=== PATIENT | male | born 1950 | race African-American/Black ===

== ENCOUNTER 2022-05-19 12:27 | Emergency (ER) | payer OTHER ==
[~2022-05-19] VITALS: Ht 170.2 cm; Wt 115.7 kg
[2022-05-19 12:27] VITALS: BP_SYST 185
--- NOTE | 2022-05-19 12:27 | NUR ---
BROUGHT BACK TO BED #6 AND TRIAGED. REPORT GIVEN TO COLLIN
--- NOTE | 2022-05-19 12:35 | NUR ---
Pt bib self to ER from home. CC ear blockage. Pt states history of waxy build up. Pt states difficulty hearing in both ears. Pt skin intact, aaox3 denies dizziness, denies NVD.
[2022-05-19] MEDS ORDERED: DOCUSATE SODIUM 100 MG CAPSULE PO ONE (13:00)
--- NOTE | 2022-05-19 13:00 | NUR ---
ER at bedside examining patient.
--- NOTE | 2022-05-19 13:15 | NUR ---
ear drops instilled to left ear pt laying on right side. Lavage of NS and hydrogen peroxide sprayed with 60 ml syringe into left ear. Pt tolerated well.
[2022-05-19 14:19] VITALS: BP_SYST 178
--- NOTE | 2022-05-19 14:19 | NUR ---
Patient given written and verbal discharge instructions and verbalizes understanding. ER MD discussed with patient the results and treatment provided. Patient in stable condition. ID arm band removed. Opportunity for questions provided and answered. Medication side effect fact sheet provided.
== END 2022-05-19 14:19 | disposition home or self-care (01) ==
LOC: SED 12:27
DX: H61.23 Impacted cerumen, bilateral (principal); H92.01 Otalgia, right ear; F17.210 Nicotine dependence, cigarettes, uncomplicated; R42 Dizziness and giddiness; R53.1 Weakness; Z91.041 Radiographic dye allergy status; Z79.899 Other long term (current) drug therapy
CPT/HCPCS: 99284

== ENCOUNTER 2022-11-02 14:32 | Emergency (ER) | payer OTHER ==
[~2022-11-02] VITALS: Ht 167.6 cm; Wt 114.3 kg
[2022-11-02 14:32] VITALS: BP_SYST 150
--- NOTE | 2022-11-02 14:37 | NUR ---
Patient triaged and placed in waiting room. VSS and patient appears in no acute distress at this time. Accompanied by SELF, awaiting available bed, and MD notified of need for MSE.
--- NOTE | 2022-11-02 15:51 | NUR ---
PT LEFT WITHOUT BEING SEEN
== END 2022-11-02 15:15 | disposition left against medical advice (07) ==
LOC: SED 14:32
DX: M54.2 Cervicalgia (principal); Z53.21 Procedure and treatment not carried out due to patient leaving prior to being seen by health care provider
CPT/HCPCS: 99281

== ENCOUNTER 2023-04-04 16:19 | Emergency (ER) | payer MEDICARE, OTHER ==
[~2023-04-04] VITALS: Ht 167.6 cm; Wt 120.2 kg
[2023-04-04 17:27] VITALS: BP_SYST 187; PULSE 106; RESP 20; TEMP 98.2; O2SAT 98
== END 2023-04-04 19:15 | disposition left against medical advice (07) ==
LOC: SED 16:19
DX: U07.1 COVID-19 (principal); R05.9 Cough, unspecified; Z53.21 Procedure and treatment not carried out due to patient leaving prior to being seen by health care provider
CPT/HCPCS: 36415; 99281

== ENCOUNTER 2023-04-07 17:36 | Emergency (ER) | payer MEDICARE, OTHER | END 2023-04-07 19:20 | disposition left against medical advice (07) | LOC: SED 17:36 | DX: R05.9 Cough, unspecified (principal); R09.81 Nasal congestion; R50.9 Fever, unspecified; Z53.21 Procedure and treatment not carried out due to patient leaving prior to being seen by health care provider ==